=== PATIENT | male | born 1950 | race Two or more races ===

== ENCOUNTER 2022-05-08 13:06 | Emergency (ER) | payer OTHER ==
[~2022-05-08] VITALS: Ht 177.8 cm; Wt 77.1 kg
[2022-05-08] MEDS ORDERED: AZOR 10-20 MG1 EACH (14:07)
[2022-05-08] MEDS ORDERED: OMEPRAZOLE MAGN20 MG (14:08)
[2022-05-08] MEDS ORDERED: TOPROL XL25 M1 (14:08)
[2022-05-08] MEDS ORDERED: CRESTOR20 MG (14:08)
[2022-05-08] MEDS ORDERED: SYNTHROID50 MCG (14:08)
[2022-05-08] MEDS ORDERED: FLECAINIDE ACET50 MG (14:09)
[2022-05-08] MEDS ORDERED: ECOTRIN81 MG (14:09)
[2022-05-08] MEDS ORDERED: METRONIDAZOLE45 G1 (14:09)
[2022-05-08] MEDS ORDERED: DAILY VALUE1 EACH (14:10)
[2022-05-08] MEDS ORDERED: FISH OIL 1,001000 MG (14:11)
[2022-05-08] MEDS ORDERED: NIACOR500 MG (14:11)
[2022-05-08] MEDS ORDERED: VITAMIN E1000 UNIT (14:11)
[2022-05-08] MEDS ORDERED: CEFPODOXIME PR200 MG PO (19:07)
== END 2022-05-08 19:13 | disposition home or self-care (01) ==
LOC: ER 13:06
DX: N39.0 Urinary tract infection, site not specified (principal); R30.0 Dysuria